=== PATIENT | female | born 1980 | race Two or more races ===

== ENCOUNTER → 2024-01-17 09:52 | Outpatient (REF) | payer OTHER, SELFPAY | LOC: HWRAD 09:52 | PROVIDERS: ATTENDING PHYSICIAN Internal Medicine | DX: R20.2 Paresthesia of skin (principal) | CPT/HCPCS: 72050; 72100 ==

== ENCOUNTER 2024-01-25 12:10 | Emergency (ER) | payer OTHER, SELFPAY ==
[2024-01-25 12:20] VITALS: BP 118/77
--- NOTE | 2024-01-25 12:35 | ED.GENMED ---
History of Present Illness
General
Chief Complaint: Skin Problem
Source: patient
Time Seen by Provider: 01/25/24 12:25
History of Present Illness
History of Present Illness:
43yoF with a history of asthma, anxiety, PFO, and PCOS presenting for evaluation of a rash. She was weeding 6 days ago and developed a rash 4 days ago. She was seen by her PCP and was diagnosed with poison adelfo and was prescribed a topical steroid.
Her rash began worsening about 3 days ago. The rash is extremely itching and is present on her face, bilateral arms, and chest. She developed shortness of breath and a cough yesterday. She has been using her inhaler every 4 hours without
improvement. She also reports central chest discomfort. She called her PCP today who advised her to go to the ED for evaluation. No fevers.
Phy Exam
General Physical Exam
General Presentation: well appearing and no apparent distress
General age: appears stated age
General Skin: warm and dry
General Habitus: normal
General Mental: alert
Cardiovascular Exam
Cardiovascular Exam: regular rate/rhythm, no edema and no murmur
Pulmonary Exam
Pulmonary Exam: lungs clear, no respiratory distress, no crackles and no wheezing
Rita Coma Scale
Eye Opening: Spontaneous
Verbal Response: Oriented
Motor Response: Obeys Commands
GCS Total Score: 15
Skin Exam
Skin Exam: other (Vesicular rash with erythema and excoriations on bilateral arms and chest consistent with poison adelfo dermatitis)
Psychiatric Exam
Psychiatric Exam: normal mood/affect
Course
Orders/Labs/Results
Orders:
Orders
01/25/24 12:34
Electrocardiogram (*1) Urgent
Reason for Study: Shortness of Breath
EKG- Treatment ONCE
CR Chest - 2 Views Urgent
Comment:
Reason For Exam: SOB
01/25/24 12:44
Basic Metabolic Panel Urgent
COVID-19 Antigen Urgent
Source: Nasal Swab
Complete Blood Count/With Diff Urgent
Troponin I Urgent
01/25/24 13:55
HydrOXYZINE [Atarax] 25 mg PO NOW STA
01/25/24 14:12
Donald Wrap Left-Treatment ONCE
Donald Wrap Right-Treatment ONCE
Abnormal Lab Results
01/25/24
12:44
RBC 3.94 L 10^6/uL
(4.20-5.40)
Hgb 11.7 L g/dL
(12.0-16.0)
Hct 33.5 L %
(37.0-47.0)
Monocytes % 10.8 H %
(1.7-9.3)
Eosinophils % 6.1 H %
(0-6)
Glucose 104 H mg/dl
(70-99)
01/25/24 12:44
01/25/24 12:44
Vital Signs
Initial and Last Documented VS:
Initial Vital Signs
Temp Pulse Resp BP Pulse Ox
98.4 F 104 18 118/77 98
01/25/24 12:20 01/25/24 12:20 01/25/24 12:20 01/25/24 12:20 01/25/24 12:20
Last Documented Vital Signs
Temp Pulse Resp BP Pulse Ox
98.4 F 104 18 121/82 97
01/25/24 12:20 01/25/24 12:20 01/25/24 12:20 01/25/24 14:54 01/25/24 12:49
MDM/Problems Addressed
Differential Diagnosis Includes:
43yoF here with as rash x 4 days that started after weeding. Currently on a topical steroid for poison adelfo. Developed SOB and cough yesterday. Also c/o CP. She is afebrile and hemodynamically stable. She is well appearing in no distress. Lungs CTA
and respirations non-labored. Vesicular rash present on exam consistent with poison adelfo dermatitis. Differential diagnosis includes but is not limited to: viral illness/COVID, pneumonia, asthma exacerbation, ACS
Initial ED plan: Check cardiac labs, COVID swab, EKG, and CXR.
*EKG
Interpreted by ED Provider?: Yes
EKG Intrepretation Date: 01/25/24
EKG Intrepretation Time: 13:35
Heart Rate: 93
Rate: normal
Rhythm: sinus
Weidman: normal axis
Interval: normal interval
QRS Pattern: normal QRS
Ischemia: no ischemia
*Critical Care Note
Total Time (30-74mins, 75-104mins- exclusive of procedures): Not Applicable
Update Note
Update Note:
Labs overall unremarkable other than a mild anemia. EKG shows normal sinus rhythm without ischemic changes and troponin is normal. COVID-negative. Chest x-ray clear without infiltrates. No indication for hospitalization at this time. She was
started on a prednisone taper for her poison adelfo dermatitis. Prescription also provided for Atarax. Advised close follow-up with PCP. ED return precautions discussed. She expressed understanding and is agreeable to plan. Patient discharged in
stable condition.
ED Attending Note
-
Portions of this chart may have been created with voice recognition software.� Occasional wrong word or��sound alike� substitutions may have occurred due to the inherent limitations of voice recognition software.
Discharge Plan
Departure
Patient Disposition: Home (Routine Discharge)
Date of Disposition: 01/25/24
Time of Disposition: 13:56
Patient with high blood pressure during this ER visit?: No
Discharge Problem:
Poison adelfo dermatitis, Shortness of breath
Instructions: Poison adelfo
Prescriptions:
New
hydroxyzine HCl 25 mg tablet
25 mg PO QID PRN (Reason: itching) Qty: 21 0RF
prednisone 10 mg tablet
10 mg PO DIRECTED Qty: 42 0RF
Rx Instructions:
Take 60mg PO daily x 2 days, 50mg daily x 2 days, 40mg x 2 days, 30mg x 2 days, 20mg x 2 days, 10mg x 2 days
Referrals:
Melony Perez DO [Family Provider] -
Activity Restrictions/Additional Instructions:
Take prednisone as prescribed. Take hydroxyzine (Atarax) as needed for itching.
Please follow-up with your family doctor in 2-3 days. Return to the ER with any worsening symptoms.
Interventions
Interventions:
*Risk Screen - Suicide Last Done: 01/25/24 12:33
*General Assessment Last Done: 01/25/24 12:20
*Neglect/Abuse Screening Last Done: 01/25/24 12:33
ED- Fall Risk Assessment Last Done: 01/25/24 12:33
*ED COVID-19 Vaccine History Last Done: 01/25/24 12:20
*Nursing Disposition Last Done: 01/25/24 14:54
ED-Skin Assessment Last Done: 01/25/24 12:34
Discharge Date and Time
Discharge Date/Time: 01/25/24 14:56
Print Language: TAJIK
[2024-01-25 12:47] VITALS: BMI 32.2
[2024-01-25 13:03] LABS: % Basophils 0.6 % (0-2); % Eosinophils 6.1 % (0-6); % Immature Granulocytes 0.2 % (0-0.5); % Lymphocytes 24.6 % (20.5-51.1); % Monocytes 10.8 % (1.7-9.3); % Neutrophils 57.7 % (42.2-75.2); Absolute Eosinophils 0.3 10^3/uL (0-0.7); Absolute Lymphocytes 1.2 10^3/uL (1.2-3.4); Absolute Monocytes 0.5 10^3/uL (0.1-0.6); Absolute Neutrophils 2.8 10^3/uL (1.4-6.5); Hematocrit 33.5 % (37.0-47.0); Hemoglobin 11.7 g/dL (12.0-16.0); Mean Corp Hgb Conc. 34.9 g/dL (33.0-37.0); Mean Corpuscular Hgb 29.7 pg (27.0-31.0); Mean Platelet Volume 9.7 fL (7.4-10.4); Nucleated Red Blood Cells % 0 %; Platelet Count 287 10^3/uL (130-400); Red Blood Cell Count 3.94 10^6/uL (4.20-5.40); Red Cell Dist. Width 12.8 % (11.5-14.5); White Blood Cell Count 4.9 10^3/uL (4.8-10.8)
[2024-01-25 13:25] LABS: Troponin I < 0.012 ng/ml
[2024-01-25 13:27] LABS: COVID-19 Antigen Negative (Negative)
[2024-01-25 13:29] LABS: Blood Urea Nitrogen 9 mg/dl (7-17); Calcium 9.1 mg/dl (8.4-10.2); Carbon Dioxide 23 mmol/L (22-30); Chloride 106 mmol/L (98-107); Estimated Creatinine Clearance > 125 ml/min; Glucose 104 mg/dl (70-99); Potassium 3.9 mmol/L (3.5-5.1); Sodium 137 mmol/L (135-145); eGFR > 60.00
[2024-01-25] MEDS: ATARAX 25 MG PO (14:33)
[2024-01-25 14:54] VITALS: BP 121/82
== END 2024-01-25 14:56 | disposition home or self-care (01) ==
LOC: EMR 12:10
PROVIDERS: Physician Assistant; EMERGENCY PHYSICIAN Emergency Medicine; FAMILY PHYSICIAN Internal Medicine
DX: L23.7 Allergic contact dermatitis due to plants, except food (principal); R06.02 Shortness of breath; L29.9 Pruritus, unspecified; R07.89 Other chest pain; Z11.52 Encounter for screening for COVID-19; F41.9 Anxiety disorder, unspecified; Q21.12 Patent foramen ovale; E28.2 Polycystic ovarian syndrome; J45.909 Unspecified asthma, uncomplicated; Z88.6 Allergy status to analgesic agent; Z91.040 Latex allergy status
CPT/HCPCS: 99283; 71046; 80048; 84484; 85025; 87811; 93005

== ENCOUNTER 2024-02-10 19:29 | Emergency (ER) | payer OTHER, SELFPAY ==
[2024-02-10 19:30] VITALS: BMI 30.1
[2024-02-10 19:33] VITALS: BP 133/92
--- NOTE | 2024-02-10 20:34 | ED.SKININJ ---
HPI-Injury
General
Chief Complaint: Skin Problem
Source: patient
Exam Limitations: none
Time Seen by Provider: 02/10/24 20:20
Nursing documentation reviewed up to this point in time: agreed with
History of Present Illness-Injury
Is this injury a work related problem?: No
Is pt an associate of [facility]/[place]?: No
Initial Injury comments:
Patient to ED with complaint of poison adelfo. States she was seen here 2 weeks ago for same. Placed on a prednisone taper with resolution of rash. States she completed course 2 days ago and rash returned after 24 hours. Now with rash to trunck and
extremities. Brought self to ED for eval.
Past History
Past History
ED Past Medical History: None
ED Past Surgical History: None
Review of Systems
Review of Systems
Allergies reviewed?: Yes
All Other Systems: ROS reviewed and negative except as documented in HPI and ROS
Constitutional: Reports no symptoms
EENT: Reports no symptoms
Respiratory: Reports no symptoms
Cardiac: Reports no symptoms
ABD/GI: Reports no symptoms
Musculoskeletal: Reports no symptoms
Skin: Reports other (contact dermatitis to trunk and extremities.)
Neurological: Reports no symptoms
Psychiatric: Reports no symptoms
Phy Exam
General Physical Exam
General Presentation: well appearing and no apparent distress
General age: appears stated age
General Skin: warm and dry
General Habitus: normal
General Mental: alert
Musculoskeletal Exam
Musculoskeletal Exam: full ROM
Skin Exam
Skin Exam: normal color, warm/dry and other (linear vesicular rash consistent with contact dermatitis to trunk and extremities.)
Psychiatric Exam
Psychiatric Exam: normal mood/affect
Course
Orders/Labs/Results
Orders:
Orders
02/10/24 20:31
Dexamethasone Pf [Decadron] 10 mg PO NOW STA
Vital Signs
Initial and Last Documented VS:
Initial Vital Signs
Temp Pulse Resp BP Pulse Ox
98.4 F 117 20 133/92 97
02/10/24 19:33 02/10/24 19:33 02/10/24 19:33 02/10/24 19:33 02/10/24 19:33
Last Documented Vital Signs
Temp Pulse Resp BP Pulse Ox
98.4 F 117 20 133/92 97
02/10/24 19:33 02/10/24 19:33 02/10/24 19:33 02/10/24 19:33 02/10/24 19:33
*Critical Care Note
Total Time (30-74mins, 75-104mins- exclusive of procedures): Not Applicable
ED Attending Note
-
Portions of this chart may have been created with voice recognition software.� Occasional wrong word or��sound alike� substitutions may have occurred due to the inherent limitations of voice recognition software.
Discharge Plan
Departure
Patient Disposition: Home (Routine Discharge)
Date of Disposition: 02/10/24
Time of Disposition: 20:31
Patient with high blood pressure during this ER visit?: No
Condition: Good
Covid-19: Not Applicable
Discharge Problem:
Contact dermatitis
Instructions: Contact dermatitis
Prescriptions:
New
prednisone 10 mg Tablet
See Rx Instructions .ROUTE .COMPLEX Qty: 45 0RF
Rx Instructions:
Take By Mouth:
50 mg daily x3 days, 40 mg daily x3 days,
30 mg daily x3 days, 20 mg daily x3 days,
10 mg daily x3 days
No Action
hydroxyzine HCl 25 mg tablet
25 mg PO QID PRN (Reason: itching) Qty: 21 0RF
prednisone 10 mg tablet
10 mg PO DIRECTED Qty: 42 0RF
Rx Instructions:
Take 60mg PO daily x 2 days, 50mg daily x 2 days, 40mg x 2 days, 30mg x 2 days, 20mg x 2 days, 10mg x 2 days
Referrals:
Melony Perez DO [Family Provider] - Follow up in 5-7 days
Interventions
Interventions:
*Risk Screen - Suicide Last Done: 02/10/24 19:33
*General Assessment Last Done: 02/10/24 19:33
*Neglect/Abuse Screening Last Done: 02/10/24 19:33
ED- Fall Risk Assessment Last Done: 02/10/24 19:33
*ED COVID-19 Vaccine History Last Done: 02/10/24 19:33
Discharge Date and Time
Print Language: STATELESS
[2024-02-10] MEDS: DECADRON 10 MG PO (20:39)
== END 2024-02-10 20:49 | disposition home or self-care (01) ==
LOC: EMR 19:29
PROVIDERS: EMERGENCY PHYSICIAN Emergency Medicine; FAMILY PHYSICIAN Internal Medicine
DX: L25.9 Unspecified contact dermatitis, unspecified cause (principal)
CPT/HCPCS: 99283

== ENCOUNTER → 2024-04-14 09:34 | Outpatient (REF) | payer OTHER, SELFPAY | LOC: WDC 09:34 | PROVIDERS: ATTENDING PHYSICIAN Internal Medicine | DX: N60.11 Diffuse cystic mastopathy of right breast (principal); N63.11 Unspecified lump in the right breast, upper outer quadrant | CPT/HCPCS: 76642; 77062; 77066 ==

== ENCOUNTER → 2024-07-17 08:18 | Outpatient (REF) | payer OTHER, SELFPAY | LOC: HWRAD 08:18 | PROVIDERS: ATTENDING PHYSICIAN Nurse Practitioner Adult Health; FAMILY PHYSICIAN Internal Medicine; REFERRING PHYSICIAN Physician Assistant | DX: N93.9 Abnormal uterine and vaginal bleeding, unspecified (principal); M25.519 Pain in unspecified shoulder; M25.569 Pain in unspecified knee; M79.643 Pain in unspecified hand | CPT/HCPCS: 73030; 73130; 73564; 76830; 76856 ==

== ENCOUNTER → 2024-10-23 07:30 | Outpatient (REF) | payer OTHER, SELFPAY | LOC: CLAB 07:30 | PROVIDERS: ATTENDING PHYSICIAN Obstetrics & Gynecology Gynecology | DX: N84.9 Polyp of female genital tract, unspecified (principal) | CPT/HCPCS: 88305 ==